=== PATIENT | female | born 1965 | race Caucasian/White ===

== ENCOUNTER 2022-02-22 12:56 | Emergency (ER) | payer MEDICARE, MEDICAID, SELFPAY ==
--- NOTE | ~2022-02-22 | CT_ITS ---
EXAMINATION: CT ABDOMEN AND PELVIS WITHOUT CONTRAST CLINICAL INFORMATION: Upper GI bleed with history of ulcerative colitis COMPARISON: Abdominal ultrasound 06/03/2010 CT abdomen 11/26/2006 TECHNIQUE: Multidetector volumetric imaging was performed from the superior aspect of the liver through the pubic symphysis. Sagittal and coronal reformatted images were obtained on the technologist's workstation. This CT examination was performed using dose optimization techniques as appropriate, variously including the following: *Automated exposure control *Adjustment of mA and/or kV according to patient size (this includes techniques or standardized protocols for targeted exams where dose is matched to indication/reason for exam; i.e. extremities or head) *Use of iterative reconstruction technique DLP: 826 mGy-cm FINDINGS: LUNG BASES: The visualized lung bases are unremarkable. LIVER, GALLBLADDER, AND BILIARY TREE: The liver is normal in size, shape, and attenuation. Fatty infiltration seen on the 2009 abdominal ultrasound and 2017 CT scan is not demonstrated on the current exam. No focal hepatic lesion or biliary ductal dilatation is present. The gallbladder is unremarkable with no evidence of radiopaque gallstones, gallbladder wall thickening, or obvious pericholecystic inflammatory changes. PANCREAS: Unremarkable. SPLEEN: Unremarkable. ADRENAL GLANDS: Unremarkable. KIDNEYS AND URETERS: The kidneys are normal in size, shape, and attenuation. There is a 2 mm left mid pole nonobstructing calculus. No hydronephrosis, hydroureter, or other calculi seen. No perinephric stranding. BLADDER: Unremarkable. GASTROINTESTINAL TRACT: The small and large bowel are unremarkable aside from scattered colonic diverticula without diverticulitis. The appendix is unremarkable. ABDOMINAL WALL: No significant hernia is appreciated. LYMPH NODES: Normal. VASCULAR: Unremarkable. PELVIC VISCERA: Unremarkable. OSSEOUS STRUCTURES: There appears to have been fusion at L4-L5. Minimal grade 1 anterolisthesis of L5 upon S1. No bony destructive lesions. CT/CT abdomen pelvis wo con IMPRESSION: No significant abnormality is seen. Incidental findings as described above including the tiny nonobstructing left renal calculus, colonic diverticula and postoperative changes in the spine. Fleischner guidelines were followed.
[2022-02-22 13:15] VITALS: BP 116/70; PULSE 72; RESP 18; TEMP 37; O2SAT 98; BMI 35.7
[2022-02-22 14:46] LABS: MANUAL DIFF FLAG NO
[2022-02-22 14:48] LABS: Basophils Percent Auto 0.6 % (0-2); Eosinophils Absolute Auto 0.3 X10*3/uL (0.0-0.4); Eosinophils Percent Auto 4.6 % (0-4); Hematocrit 43.2 % (37.0-47.0); Hemoglobin 14.2 g/dl (12.0-16.0); Imm Gran Abs Auto 0.02 X10*3/uL (0.00-0.03); Imm Gran Pct Auto 0.3 % (0.0-0.4); Lymphocytes Absolute Auto 1.7 X10*3/uL (1.2-4.9); Lymphocytes Percent Auto 24.4 % (20-40); Mean Corpuscular HGB Conc 32.9 g/dl (31.0-35.0); Mean Corpuscular Hemoglobin 29.8 pg (27.0-33.0); Mean Corpuscular Volume 90.8 fL (80.0-98.0); Mean Platelet Volume 8.4 fL (9.4-12.3); Monocytes Absolute Auto 0.5 X10*3/uL (0.1-1.2); Monocytes Percent Auto 7.5 % (2-11); Neutrophils Absolute Auto 4.3 x10*3/uL (2.0-8.3); Neutrophils Percent Auto 62.6 % (45-73); Platelet Count 353 X10*3/uL (160-400); Red Blood Count 4.76 X10*6/uL (4.20-5.50); Red Cell Distribution Width 12.4 % (11.0-16.0); White Blood Count 6.8 X10*3/uL (4.8-10.8)
[2022-02-22 15:03] LABS: COVID-19 Test Negative (Negative); IDNOW Serial# 16C4AD1C
[2022-02-22 15:06] LABS: Alanine Aminotransferase 24 U/L (0-31); Albumin Level 4.3 g/dL (3.5-5.0); Alkaline Phosphatase 60 U/L (39-117); Anion Gap 10 (12-20); Aspartate Amino Transferase 20 U/L (5-31); Bilirubin Direct 0.2 mg/dL (0.0-0.5); Bilirubin Total 0.5 mg/dL (0.0-1.0); Blood Urea Nitrogen 18 mg/dL (9-16); Calcium 9.6 mg/dL (8.4-10.2); Carbon Dioxide 28 mmol/L (22-29); Chloride 106 mmol/L (96-108); Creatinine Clr Calc Pharmacy 87.5; Estimated Glomerular Filt Rate > 60; Glucose Random 87 mg/dL (60-115); Potassium 4.2 mmol/L (3.3-5.1); Sodium 140 mmol/L (135-145)
[2022-02-22 19:54] LABS: IDNOW Serial# 55D5AD1C; Influenza A Negative (Negative); Influenza B2 Negative (Negative)
--- NOTE | 2022-02-22 21:10 | ED_ITS ---
HPI - GI Bleed General Chief complaint: GI Bleed Stated complaint: vomit blood Time Seen by Provider: 02/22/22 21:10 Source: patient Mode of arrival: ambulatory Limitations: no limitations History of Present Illness HPI Narrative: Patient 56 years old with history of ulcerative colitis stable history of duodenal ulcer more than 10 years ago non bleeding ulcerative colitis been stable for last 9 years 2 weeks ago patient had bowel movement with small amount of bright red blood was doing fine for last 2 weeks today she had some [employer] sandwich , started vomiting about 3 times and last vomitus she had some bright red blood with epigastric pain no vomiting since 09:00. Patient did not have any more blood in stool Related Data Previous Rx's Medication Instructions Recorded hydrocortisone acetate 25 mg 25 mg NJ BID #12 ea 02/22/22 rectal suppository (Anusol-HC) pantoprazole 40 mg tablet,delayed 40 mg PO DAILY #30 tab 02/22/22 release (Protonix) Allergies Allergy/AdvReac Type Severity Reaction Status Date / Time amoxicillin [AMOXICILLIN] Allergy Unknown RASH Unverified 06/24/20 15:23 levofloxacin [From Levaquin] Allergy Confusion Verified 02/22/22 22:47 Review of Systems Review of Systems: Yes all other systems are reviewed and are negative [facility] Past Medical History Medical History (Updated 02/23/22 @ 00:01 by Doug Dooley) Arthritis Depression HLD (hyperlipidemia) HTN (hypertension) Pre-diabetes Social History Social History Advance Directives: No Advance Directives Information Provided: No Physical Exam Vital Signs: Vital Signs: Last Vital Signs Temp 98.3 F 02/22/22 21:50 Pulse 66 02/22/22 22:36 Resp 11 L 02/22/22 22:36 BP 140/79 H 02/22/22 21:50 Pulse Ox 100 02/22/22 22:36 BMI result Body Mass Index 35.7 Appearance: Alert. Oriented X3. No acute distress. Eyes: No pallor or icterus ENT: Pharynx normal. Oral Mucosa moist Neck: Normal inspection. Neck supple. CVS: Normal heart rate and rhythm. Pulses normal. Respiratory: No respiratory distress. Equal air entry bilateral, no wheezing/rales/rhonchi Abdomen: Soft , mild epigastric tenderness no rebound tenderness or guarding Bowel sounds are present, no mass palpable, no CVA tenderness Skin: Skin warm and dry. Normal skin color. Normal skin turgor. Extremities: No lower extremity edema. No calf tenderness Neuro: Oriented X 3. MDM - GI Bleed MDM Narrative Medical decision making narrative: Patient with gastritis with few episode of vomiting with fresh blood likely from ruptured esophageal blood vessel. Rectal negative CT scan negative for any acute significant abnormality will discharge patient home H and H is stable Lab Data Attestation: I reviewed the patient's lab results. Result diagrams: 02/22/22 22:09 02/22/22 14:39 Labs: Lab Results 02/22/22 02/22/22 02/22/22 Range/Units 14:39 14:39 14:39 WBC 6.8 (4.8-10.8) X10*3/uL RBC 4.76 (4.20-5.50) X10*6/uL Hgb 14.2 (12.0-16.0) g/dl Hct 43.2 (37.0-47.0) % MCV 90.8 (80.0-98.0) fL MCH 29.8 (27.0-33.0) pg MCHC 32.9 (31.0-35.0) g/dl RDW 12.4 (11.0-16.0) % Plt Count 353 (160-400) X10*3/uL MPV 8.4 L (9.4-12.3) fL Immature Gran % (Auto) 0.3 (0.0-0.4) % Neut % (Auto) 62.6 (45-73) % Lymph % (Auto) 24.4 (20-40) % [place] % (Auto) 7.5 (2-11) % Eos % (Auto) 4.6 H (0-4) % Baso % (Auto) 0.6 (0-2) % Lymph # (Auto) 1.7 (1.2-4.9) X10*3/uL [place] # (Auto) 0.5 (0.1-1.2) X10*3/uL Eos # (Auto) 0.3 (0.0-0.4) X10*3/uL Baso # (Auto) 0.0 (0.0-0.2) X10*3/uL Abs Immat Gran (auto) 0.02 (0.00-0.03) X10*3/uL Absolute Neuts (auto) 4.3 (2.0-8.3) x10*3/uL Absolute Nucleated RBC 0.000 (0.0-0.012) X10*3/uL Nucleated RBC % (auto) 0.0 (0.0-0.2) /100WBC Sodium 140 (135-145) mmol/L Potassium 4.2 (3.3-5.1) mmol/L Chloride 106 (96-108) mmol/L Carbon Dioxide 28 (22-29) mmol/L Anion Gap 10 L (12-20) BUN 18 H (9-16) mg/dL Creatinine 0.81 (0.5-1.4) mg/dL Estim Creat Clear Calc 87.5 Estimated GFR > 60 Random Glucose 87 (60-115) mg/dL Calcium 9.6 (8.4-10.2) mg/dL Total Bilirubin 0.5 (0.0-1.0) mg/dL Direct Bilirubin 0.2 (0.0-0.5) mg/dL AST 20 (5-31) U/L ALT 24 (0-31) U/L Alkaline Phosphatase 60 (39-117) U/L Total Protein 7.0 (6.5-8.0) g/dL Albumin 4.3 (3.5-5.0) g/dL Stool Occult Blood (NEGATIVE) COVID-19 (DEYANIRA) Negative (Negative) COVID-19 Clin Com See Note Influenza Type A (HUNG) (Negative) Influenza Type B (HUNG) (Negative) Influenza A & B Note 02/22/22 02/22/22 02/22/22 Range/Units 19:30 22:09 22:09 WBC (4.8-10.8) X10*3/uL RBC (4.20-5.50) X10*6/uL Hgb 13.2 (12.0-16.0) g/dl Hct 39.5 (37.0-47.0) % MCV (80.0-98.0) fL MCH (27.0-33.0) pg MCHC (31.0-35.0) g/dl RDW (11.0-16.0) % Plt Count (160-400) X10*3/uL MPV (9.4-12.3) fL Immature Gran % (Auto) (0.0-0.4) % Neut % (Auto) (45-73) % Lymph % (Auto) (20-40) % [place] % (Auto) (2-11) % Eos % (Auto) (0-4) % Baso % (Auto) (0-2) % Lymph # (Auto) (1.2-4.9) X10*3/uL [place] # (Auto) (0.1-1.2) X10*3/uL Eos # (Auto) (0.0-0.4) X10*3/uL Baso # (Auto) (0.0-0.2) X10*3/uL Abs Immat Gran (auto) (0.00-0.03) X10*3/uL Absolute Neuts (auto) (2.0-8.3) x10*3/uL Absolute Nucleated RBC (0.0-0.012) X10*3/uL Nucleated RBC % (auto) (0.0-0.2) /100WBC Sodium (135-145) mmol/L Potassium (3.3-5.1) mmol/L Chloride (96-108) mmol/L Carbon Dioxide (22-29) mmol/L Anion Gap (12-20) BUN (9-16) mg/dL Creatinine (0.5-1.4) mg/dL Estim Creat Clear Calc Estimated GFR Random Glucose (60-115) mg/dL Calcium (8.4-10.2) mg/dL Total Bilirubin (0.0-1.0) mg/dL Direct Bilirubin (0.0-0.5) mg/dL AST (5-31) U/L ALT (0-31) U/L Alkaline Phosphatase (39-117) U/L Total Protein (6.5-8.0) g/dL Albumin (3.5-5.0) g/dL Stool Occult Blood NEGATIVE (NEGATIVE) COVID-19 (DEYANIRA) (Negative) COVID-19 Clin Com Influenza Type A (HUNG) Negative (Negative) Influenza Type B (HUNG) Negative (Negative) Influenza A & B Note See Note Discharge Plan Discharge Clinical Impression: Gastritis, Hemorrhoids Patient Disposition: Home, Self-Care Instructions: Gastritis (ED), Hemorrhoids (ED) Additional Instructions: Drink plenty of fluids avoid fried food Take medication as prescribed Avoid constipation Prescriptions: New pantoprazole [Protonix] 40 mg tablet,delayed release (DR/EC) 40 mg PO DAILY Qty: 30 0RF hydrocortisone acetate [Anusol-HC] 25 mg suppository 25 mg NJ BID Qty: 12 0RF Interventions: ED Discharge Assessment Last Done: 02/22/22 23:36 Discharge Date/Time: 02/22/22 23:37
[2022-02-22 21:50] VITALS: BP 140/79; PULSE 69; RESP 18; TEMP 36.8; O2SAT 100
[2022-02-22 22:17] LABS: Hematocrit 39.5 % (37.0-47.0); Hemoglobin 13.2 g/dl (12.0-16.0)
[2022-02-22 22:18] LABS: OBS Int Ctl Valid YES; OBS1 NEGATIVE (NEGATIVE)
[2022-02-22 22:36] VITALS: PULSE 66; RESP 11; O2SAT 100
[2022-02-22] MEDS: 0.9 % Sodium Chloride 1,000 ML 999 ML IV (22:45)
[2022-02-22] MEDS: Pantoprazole Sodium 40 MG/10 ML VIAL IVPUSH (22:45)
== END 2022-02-22 23:37 | disposition home or self-care (01) ==
PROVIDERS: Emergency Provider Internal Medicine; PCP Internal Medicine
DX: K29.70 Gastritis, unspecified, without bleeding (principal); I10 Essential (primary) hypertension; R73.03 Prediabetes; K64.9 Unspecified hemorrhoids; Z20.822 Contact with and (suspected) exposure to COVID-19
CPT/HCPCS: 36415; 74176; 80053; 82248; 82272; 85014; 85018; 85025; 87502; 87635; 96361; 96374; 99284

== ENCOUNTER 2024-10-28 13:05 | Outpatient (REF) | payer OTHER, SELFPAY | END 2024-10-28 13:06 | disposition home or self-care (01) | LOC: HO.LAB 13:05 | PROVIDERS: PCP Internal Medicine | DX: R30.0 Dysuria (principal); R35.0 Frequency of micturition | CPT/HCPCS: 81003; 87086; 87088; 87186; 99212 ==

== ENCOUNTER 2024-10-28 13:05 | Outpatient (AMB) | payer OTHER, SELFPAY ==
[2024-10-28 13:18] VITALS: BP 122/86; PULSE 89; TEMP 36.7; O2SAT 98; BMI 37.3
--- NOTE | 2024-10-28 13:18 | AM.OFFWIN_ITS ---
Intake Vital Signs 10/28/24 13:18 Height 5 ft 5 in Weight 224 lb BMI 37.3 BP 122/86 Blood Pressure Location Lt brachial Position Sitting Pulse 89 Pulse Source Pulse Oximeter Temp 98.1 F Temp Source Oral Pulse Oximetry (%) 98 Oxygen Delivery Method Room Air Intake Visit Reasons: EP-UTI & pain Intake Note: Pt presents to the office today for c/o UTI and pain x 1 week. Pt states she has frewuency, urgency, pain when urinating, and spasms. Patient Tobacco Use Status: Never used Tobacco Allergies amoxicillin [AMOXICILLIN] Allergy (Unknown, Verified 10/28/24 13:24) RASH levofloxacin [From Levaquin] Allergy (Verified 10/28/24 13:24) Confusion HPI HPI Comments History of Present Illness Details This is a 59-year-old female with a past medical history of anxiety, depression, arthritis and hypertension presenting for evaluation of urinary pressure, urinary frequency and dysuria that has been ongoing for the past 1 week. Patient denies having any fevers but has had chills. She denies any vaginal discharge or diarrhea. She has taken Tylenol only for her discomfort. [facility] Medical History (Updated 10/28/24 @ 14:05 by Mariola Smith PA-C) Dysuria Depression Arthritis Pre-diabetes HLD (hyperlipidemia) HTN (hypertension) Social History Patient Tobacco Use Status: Never used Tobacco Review of Systems Const All systems reviewed & are unremarkable except as noted in HPI and below Reports chills, Denies fever(s) and Denies weakness Eyes Reports no additional complaints ENT Reports no additional complaints Card Reports no additional complaints Resp Reports no additional complaints GI Reports no additional complaints, Denies constipation, Denies dyspepsia, Denies diarrhea, Denies nausea and Denies vomiting Reports dysuria, Denies urinary incontinence, Reports urinary hesitancy and Denies vaginal discharge Musc Reports no additional complaints Skin/Breast Reports system reviewed and no additional complaints, except as documented Neuro Reports no additional complaints and Denies weakness Psych Reports no additional complaints Endo Reports no additional complaints Aller/Immun Reports no additional complaints Physical Exam Vital Signs: Last Vital Signs Temp 98.1 F 10/28/24 13:18 Pulse 89 10/28/24 13:18 BP 122/86 10/28/24 13:18 Pulse Ox 98 10/28/24 13:18 Oxygen Delivery Method Room Air 10/28/24 13:18 BMI result Body Mass Index 37.3 Const General: cooperative, healthy appearing, comfortable, no acute distress, well developed, alert, awake and Physically active; No lethargic Nutritional Appearance: average body habitus Orientation/consciousness: patient oriented x3 and No lethargic Limitations: no limitations Cardio Rate: regular rate Rhythm: regular rhythm GI Palpation (GI): Soft to palpation, nontender and no guarding Auscultation: normal bowel sounds General: Yes Bimanual renal exam normal bilaterally and No bladder normal to palpation (Suprapubic tenderness without guarding) Bimanual exam- vagina & uterus: No bladder normal to palpation (Suprapubic tenderness without guarding) Neuro General: patient oriented x3 Psych Appearance: grossly normal Mental Status: mental status grossly normal Insight: Good insight present (Psych) Judgement: Good judgement present (Psych) Results AMB Urinalysis, Automated UA Leukoctes 125 David/uL Last Edit by Melissa Warner CMA on 10/28/24 13:35 UA Nitrite Negative Last Edit by Melissa Warner CMA on 10/28/24 13:35 UA Urobilinogen 0.2 mg/dL Last Edit by Melissa Warner CMA on 10/28/24 13:35 UA Protein 0 mg/dL Last Edit by Melissa Warner CMA on 10/28/24 13:35 UA pH 6.0 Last Edit by Melissa Warner CMA on 10/28/24 13:35 UA Blood 10 Kailash/uL Last Edit by Melissa Warner CMA on 10/28/24 13:35 UA Specific [place] 1.020 Last Edit by Melissa Warner CMA on 10/28/24 13:35 UA Ketone Negative Last Edit by Melissa Warner CMA on 10/28/24 13:35 UA Bilirubin 0 mg/dL Last Edit by Melissa Warner CMA on 10/28/24 13:35 UA Glucose 0 mg/dL Last Edit by Melissa Warner CMA on 10/28/24 13:35 Results Reviewed Results Reviewed: Laboratory Last Values Urine pH (Auto) 6.0 10/28/24 13:35 Specific [place] (Auto) 1.020 10/28/24 13:35 Urine Protein (Auto) 0 mg/dL 10/28/24 13:35 Glucose (UA)(Auto) 0 mg/dL 10/28/24 13:35 Urine Ketones (Auto) Negative 10/28/24 13:35 Urine Blood (Auto) 10 Kailash/uL 10/28/24 13:35 Urine Nitrite (Auto) Negative 10/28/24 13:35 Urine Bilirubin (Auto) 0 mg/dL 10/28/24 13:35 Urine Urobilinogen (Auto) 0.2 mg/dL 10/28/24 13:35 Leukocyte Esterase (Auto) 125 David/uL 10/28/24 13:35 Assessment & Plan Assessment & Plan (1) Dysuria: Comment: Patient's urinalysis is concerning for an acute urinary tract infection. Urine culture will be obtained. Patient will be discharged home with antibiotic therapy. Code(s): R30.0 - Dysuria Plan: Macrobid 100 mg b.i.d. x7 days. Orders: Orders AMB Urinalysis Automated Today Hortencia Martin PA-C Z13.9 - Encounter for screening, unspecified Medications: New nitrofurantoin monohyd/m-cryst 100 mg (Macrobid) must administer with a meal/food 100 mg PO BID 14 caps 0RF Mariola Smith PA-C Coding Level of Care Code Est Pt Level 3 (69300) Diagnoses Dysuria R30.0 Time Spent (min) 20
== END 2024-10-28 14:19 | disposition home or self-care (01) ==
PROVIDERS: PCP Internal Medicine; Visit Provider Physician Assistant
DX: R30.0 Dysuria (principal); Z13.9 Encounter for screening, unspecified